=== PATIENT | female | born 1945 | race Caucasian/White ===

== ENCOUNTER 2016-09-08 06:50 | Day surgery (SDC) | payer MEDICARE, OTHER ==
[~2016-09-08] VITALS: Ht 165.1 cm; Wt 83.5 kg
[~2016-09-08 06:50] MED LIST: MULTIVITAMINS1 EAC7 PO; VITAMIN D31000 UNI1 PO
[2016-09-08] MEDS ORDERED: IBUPROFEN600 MG PO (11:15)
[2016-09-08] MEDS ORDERED: OXYCODON-ACETA1 EAC2 PO (11:15)
--- NOTE | 2016-09-13 13:10 | OR ---
[facility] [address], [place] [address] Signed DATE OF SERVICE: 09/08/2016 PREOPERATIVE DIAGNOSIS: Right carpal tunnel syndrome. POSTOPERATIVE DIAGNOSIS: Right carpal tunnel syndrome. PROCEDURE: Right carpal tunnel release. SURGEON: Peter Amaya MD ANESTHESIA: Caitie block with sedation (Tanya Malik CRNA) and local5 cc Of 0.25% Marcaine (plain). INDICATION: This 71-year-old white woman is a patient of DENNY Hernandez and has had symptoms highly suggestive of carpal tunnel syndrome since 1997. Her symptoms are greater on the right hand than the left. Her symptoms include pain in hands and thumb and index and middle fingers. She is right-hand dominant. She has undergone advanced neurologic testing by Dr. 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 She is admitted at this time to undergo right carpal tunnel release. Understands the risks of bleeding, infection, failure to cure, recurrence and of course, median nerve injury itself. Understanding this, she wished to proceed. FINDINGS: The transverse carpal ligament was easily identified and transected to the palmar fascia and proximally to the distal transverse wrist crease. The underlying nerve appeared normal except for mild inflammation. There were no other findings of concern. DESCRIPTION OF PROCEDURE: The patient was brought to the operating room and given a Ritchie block anesthetic on the right side. Intravenous sedation was given as well. Preoperative antibiotic Ancef was given. Sequential compression device stockings were used. The right hand was prepared with a chlorhexidine solution after successful Ritchie block. Good exsanguination was noted. The tourniquet was placed to 250 mmHg. Total tourniquet time was 23 minutes. After sterile preparation, a rolled blue towel was put behind the wrist allowing for good wrist extension and the lead hand retractor used to provide excellent exposure. A small incision was made on the palm ulnar to the thenar crease. Issection was carried through the dermis. A small amount of electrocautery was used for some cool venous blood in the area. Skin retractors and ultimately soft tissue retractors were used to separate the tissue allowing for further dissection with a 15 blade to the transverse carpal ligament. This was divided with loupe magnification and headlight illumination for good visibility. A hemostat was placed beneath it and the Electronically Signed By: PETER AMAYA MD 09/13/16 1310 PATIENT NAME: TANYA MARK OPERATIVE REPORT DATE OF : 49 PHYSICIAN: PETER AMAYA MD REPORT #: [id number] REPORT IS CONFIDENTIAL AND NOT TO BE RELEASED WITHOUT AUTHORIZATION [facility] [address], [place] [address] Signed ligament was transected distally onto the palmar fascia. Hemostat was replaced more proximally and the transverse carpal ligament divided proximally as well. Further transection was undertaken with tenotomy scissors under direct visualization protecting the underlying median nerve to the transverse wrist crease. Inspection of the nerve showed mild inflammatory change. No sign of hourglass change or sign of neoplasm. Irrigation was undertaken and 5 cc of 0.25% Marcaine was injected locally for postoperative analgesia. The skin was then closed with interrupted 2-0 nylon suture. A Xeroform gauze, plain gauze, and a Flexicon wrap was applied. A small cock-up wrist splint was applied as was an Marvin wrap over that. Pressure was applied to the operative site and the tourniquet was let down and time noted to be 23 minutes. Once rubor returned to the fingers, pressure was released from the operative site. She was then transported to recovery room in good condition and suffered no complication. Sponge and instrument counts reported as correct x3. MD ROCÍO Navarro/Hans /[id number] cc: DENNY Rebolledo Electronically Signed By: PETER AMAYA MD 09/13/16 1310 PATIENT NAME: TANYA MARK OPERATIVE REPORT DATE OF : 49 PHYSICIAN: PETER AMAYA MD REPORT #: [id number] REPORT IS CONFIDENTIAL AND NOT TO BE RELEASED WITHOUT AUTHORIZATION
== END 2016-09-08 12:11 | disposition home or self-care (01) ==
LOC: DS 06:50 → OPS 06:50 → DS 08:45 → OPS 08:45
PROVIDERS: Surgery
PROC: 01N50ZZ Release Median Nerve, Open Approach (ICD-10-PCS; principal; 2016-09-08 08:45)
DX: G56.01 Carpal tunnel syndrome, right upper limb (principal); Z98.51 Tubal ligation status; Z90.89 Acquired absence of other organs; Z98.890 Other specified postprocedural states; Z85.3 Personal history of malignant neoplasm of breast; Z88.1 Allergy status to other antibiotic agents; Z90.13 Acquired absence of bilateral breasts and nipples
CPT/HCPCS: 01810; J0690; J1200; J2250; J2405; J2704; J3010; J7120

== ENCOUNTER 2017-04-08 09:00 | Day surgery (SDC) | payer MEDICARE, OTHER ==
[~2017-04-08] VITALS: Ht 165.1 cm; Wt 83.9 kg
[~2017-04-08 09:00] MED LIST changes: +IBUPROFEN600 MG PO; +OXYCODON-ACETA1 EAC2 PO
--- NOTE | 2017-04-08 11:25 | NUR ---
04/08/17 1125 Farzaneh Gottlieb 1111 RESP EVEN AND UNLABORED WITH ORAL AIRWAY IN PLACE. 1118 PT OPENED HER EYES, AND WAS ABLE TO FOLLOW COMMANDS TO OPEN MONTH TO REMOVED AIRWAY. PT MAINTAINING OWN AIRWAY. REPORTS THAT FINGER ARE NUMB THEN BACK TO SLEEP. ICE PLACED ON RIGHT HAND.
--- NOTE | 2017-04-08 12:27 | NUR ---
PT ARRIVES TO DS UNIT ROOM 12 WITH EYES CLOSED, RESTING QUIETLY. PT HAS NASAL CANNULA WITH 2L O2 ON ARRIVAL. ICED WATER AND CRACKERS PROVIDED. CALL LIGHT WITHIN REACH.
--- NOTE | 2017-04-08 13:30 | NUR ---
PT UP TO BR WITH ASSIST, AMB WELL. PT VOIDED LARGE AMOUNT OF YELLOW URINE AND AGREES THAT BLADDER FEELS EMPTIED. PT BACK IN BED WITH HOB AT 90 DEGREES, WATCHING TELEVISION. CARMINA ORDERED. CALL LIGHT WITHIN REACH.
[2017-04-08] MEDS ORDERED: NORCO 5-325 TA1 EACH PO (13:47)
--- NOTE | 2017-04-08 14:22 | NUR ---
PT TOLERATED LUNCH WELL WITH NO COMPLAINTS OF NAUSEA. PT STATES THAT SHE IS NOT IN ANY PAIN AND THAT "THE BLOCK IS STILL WORKING REALLY WELL." PT'S CALLED TO COME AND GET PT SHE HAS MET CRITERIA FOR DC.
--- NOTE | 2017-04-08 14:53 | NUR ---
DC INSTUCTIONS GIVEN IN THE PRESENCE OF AND PT, ACKNOWLEDGED AND UNDERSTOOD. ALL QUESTIONS ANSWERED. PT DC'D FROM DS UNIT VIA WHEELCHAIR WITH .
--- NOTE | 2017-04-20 07:07 | OR ---
[facility] [address], [place] [address] Signed DATE OF OPERATION: 04/08/2017 SURGEON: Kristina Clark MD PREOPERATIVE DIAGNOSES: 1. Carpal tunnel syndrome, left. 2. Snapping thumb right. POSTOPERATIVE DIAGNOSES: 1. Carpal tunnel syndrome, left. 2. Snapping thumb right. PROCEDURES: 1. Carpal tunnel release, left. 2. Injection of the flexor tendon sheath of the flexor pollicis longus in the right thumb. ANESTHESIA: Caitie block on the left with sedation. SPECIMENS AND COMPLICATIONS: There were no specimens or complications. TOURNIQUET TIME: On the left was about 30 minutes. WHAT WAS DONE: The patient was taken to the operating room. After anesthesia was induced and the airway gently supported, the left upper extremity was positioned, prepped and draped in a routine sterile fashion. The arm was placed in the lead hand and the bony topography of the wrist was outlined with a skin marking pen. We then made a longitudinal incision in line with the anterior mid axial line of the fourth ray, beginning at the distal wrist flexion crease and extending distally for about 1.5 cm. The skin was divided sharply. Subcutaneous tissue was bluntly spread. The transverse volar carpal ligament was identified and released with the tip of a #15 blade. We then inserted a curved tenotomy scissor and used a Ragnell retractor to lift up the distal skin flap and then released the rest of the median nerve under direct vision. We then reversed direction, placed the Ragnell under the proximal skin flap and again used the curved tenotomies to completely release the distal 3 cm of the antebrachial fascia. At this point, we had excellent visualization of the nerve, which appeared to be completely decompressed. The Electronically Signed By: KRISTINA CLARK MD 04/20/17 0707 PATIENT NAME: MARKO MARK OPERATIVE REPORT DATE OF : 49 PHYSICIAN: KRISTINA CLARK MD REPORT #: [id number] REPORT IS CONFIDENTIAL AND NOT TO BE RELEASED WITHOUT AUTHORIZATION [facility] [address], [place] [address] Signed wound was gently irrigated and closed in a standard fashion. A sterile dressing was applied. We then prepped the right thumb with an alcohol-based prep solution. We palpated the nodule in the flexor tendon and then injected a 0.5 mL of 1% plain Xylocaine and a 0.5 mL of Kenalog-40 into the flexor tendon sheath. A small Band-Aid was applied. The patient was awakened to the recovery room, where arrived in stable condition. Counts were correct and antibiotic protocols were followed. Kristina Clark MD WFB/MODL /[id number] Electronically Signed By: KRISTINA CLARK MD 04/20/17 0707 PATIENT NAME: MARKO MARK OPERATIVE REPORT DATE OF : 49 PHYSICIAN: KRISTINA CLARK MD REPORT #: [id number] REPORT IS CONFIDENTIAL AND NOT TO BE RELEASED WITHOUT AUTHORIZATION
== END 2017-04-08 14:50 | disposition home or self-care (01) ==
LOC: OPS 09:00 → DS 09:00 → OPS 09:30 → DS 09:30 → OPS 14:50
PROVIDERS: Orthopaedic Surgery
PROC: 3E0233Z Introduction of Anti-inflammatory into Muscle, Percutaneous Approach (ICD-10-PCS; 2017-04-08)
PROC: 3E023BZ Introduction of Anesthetic Agent into Muscle, Percutaneous Approach (ICD-10-PCS; 2017-04-08)
PROC: 01N50ZZ Release Median Nerve, Open Approach (ICD-10-PCS; principal; 2017-04-08 09:30)
DX: G56.02 Carpal tunnel syndrome, left upper limb (principal); M65.311 Trigger thumb, right thumb; Z88.1 Allergy status to other antibiotic agents; Z79.899 Other long term (current) drug therapy
CPT/HCPCS: 01810; J0690; J1100; J1200; J1885; J2250; J2405; J2704; J2765; J3010; J3301; J7120

== ENCOUNTER 2018-04-07 08:59 | Day surgery (SDC) | payer MEDICARE, OTHER ==
[~2018-04-07] VITALS: Ht 165.1 cm; Wt 92.1 kg
[~2018-04-07 08:59] MED LIST changes: +NORCO 5-325 TA1 EACH PO
--- NOTE | 2018-04-07 11:28 | NUR ---
04/07/18 Sameer8 [place] 1119-PATIENT ARRIVED TO PACU ON 2L NC PATIENT REACTIVE TO VOICE OPENING EYES. DENIES PAIN OR NAUSEA WHEN ASKED. PATIENT REPOSITIONED SELF TO BACK. 1127-PATIENT SLEEPING AROUSES TO VERBAL STIMULI ENCOURAGED TO TAKE DEEP BREATHES.
--- NOTE | 2018-04-08 09:18 | OR ---
[facility] [address], [place] [address] Signed DATE OF OPERATION: 04/07/2018 SURGEON: Vaibhav Beltran MD PREOPERATIVE DIAGNOSIS: Family history of colon cancer in her father at age 48. POSTOPERATIVE DIAGNOSES: 1. 4 mm polyps at 55, 18, 15, and 10 cm. 2. Long redundant left colon. 3. Minimal sigmoid diverticulosis. PROCEDURE PERFORMED: Colonoscopy with hot biopsy. ESTIMATED BLOOD LOSS: None. INDICATIONS: Tanya is a 72-year-old female, asked to see me for a 5-year followup colonoscopy. Her father actually from colon cancer at age 48. However, Tanya's maternal grandmother lived to be 97 and her mother lived to be 92. Both were said to of old age. Tanya herself is now 72. She looks much younger than her stated age. She has excellent functional status. She tells me she has no lower GI complaints. She is enjoying her residential very much. She had a negative colonoscopy back in 2012. I met with Tanya in the office and gave her a pamphlet on colonoscopy. She understands the nature of the test along with the risks including but not limited to, gas bloating, crampy abdominal pain, bleeding, perforation, requiring surgery, and missed diagnosis. She also understands the need for IV conscious sedation. She had expressed understanding wished to proceed. PROCEDURE NOTE: Tanya was taken into our endoscopy suite and placed in the left lateral decubitus position. She was given 10 mg of Versed and 200 mcg of fentanyl to cover the case. A digital rectal exam was performed and this was unremarkable. The adult colonoscope was introduced and advanced under direct visualization of camera. She has a long redundant sigmoid and left colon. It is also a bit angulated. It took extra sedation and abdominal compression in order to advance the scope through this area and finally into the cecum itself. Her prep was quite good. We could easily see the Crohn's foot and the appendiceal orifice. The ileocecal valve was also visualized. The scope was slowly Electronically Signed By: VAIBHAV BELTRAN MD 04/08/18 0918 PATIENT NAME: TANYA MARK OPERATIVE REPORT DATE OF : 49 REPORT #: [id number] PHYSICIAN: VAIBHAV BELTRAN MD PCP: KIM CRUZ REPORT IS CONFIDENTIAL AND NOT TO BE RELEASED WITHOUT AUTHORIZATION [facility] [address] [place], [place] [address] Signed withdrawn. We took pictures throughout for photodocumentation. She had several small hyperplastic appearing polyps in the colon and rectum, which we removed with the help of hot biopsy forceps. She also has a few diverticula in the sigmoid colon. They were minimal to moderate in size, minimal in number and scattered about. Once in the rectum, the scope had been retroflexed and really no additional pathology above the anal canal. After this, the gas was suctioned out and the colonoscope removed. Tanya had tolerated the procedure. However, if she has any conscious memory of that procedure, she might consider propofol in the future. RECOMMENDATIONS: I will see Tanya back in 7 to 14 days to review her results. Vaibhav Beltran MD ALB/MODL /[id number] cc: MD Kim Zimmer PA Copies: VAIBHAV BELTRAN MD, LINDA PA ~ Electronically Signed By: VAIBHAV BELTRAN MD 04/08/18 0918 PATIENT NAME: TANYA MARK OPERATIVE REPORT DATE OF : 49 REPORT #: [id number] PHYSICIAN: VAIBHAV BELTRAN MD PCP: KIM CRUZ REPORT IS CONFIDENTIAL AND NOT TO BE RELEASED WITHOUT AUTHORIZATION
== END 2018-04-07 12:06 | disposition home or self-care (01) ==
LOC: OPS 08:59 → DS 08:59 → OPS 12:06
PROVIDERS: Colon & Rectal Surgery
PROC: 0DBE8ZZ Excision of Large Intestine, Via Natural or Artificial Opening Endoscopic (ICD-10-PCS; principal; 2018-04-07 10:30)
DX: Z12.11 Encounter for screening for malignant neoplasm of colon (principal); K63.5 Polyp of colon; K62.1 Rectal polyp; K57.30 Diverticulosis of large intestine without perforation or abscess without bleeding; K63.89 Other specified diseases of intestine; Z80.0 Family history of malignant neoplasm of digestive organs; Z98.890 Other specified postprocedural states; Z87.891 Personal history of nicotine dependence; Z88.1 Allergy status to other antibiotic agents; Z79.899 Other long term (current) drug therapy
CPT/HCPCS: 99153; G0500; J2250; J3010; J7120